=== PATIENT | female | born 1955 | race Caucasian/White ===

== ENCOUNTER 2023-09-13 05:36 | Observation (INO) ==
[2023-09-13] MEDS: Buffered Lidocaine 1% SYRIN 1 ml INTRADERM ONE (06:01)
[2023-09-13] MEDS ORDERED: Famotidine IV 10 MG/ML 2 ml VIAL (20 mg) ONE (06:11)
[2023-09-13] MEDS ORDERED: ceFAZolin 2 GM PREMIX 2 GM/50 ML BAG ONE (06:11)
[2023-09-13] MEDS ORDERED: Chlorhexidine MOUTHWASH 0.12% 15 ML UDC ONE (06:15)
[2023-09-13 06:27] LABS: Rapid COVID-19 Molecular Undetected (Undetected)
[2023-09-13] MEDS: Famotidine IV 10 MG/ML 2 ml VIAL (20 mg) IV ONE (06:33)
[2023-09-13] MEDS: Lactated Ringers 1000 ml BAG 1,000 ML IV SCH ×2 (06:33→12:07)
[2023-09-13] MEDS ORDERED: Lidocaine 1% w EPI 1:200,000 SDV 30 ML VIAL ONE (07:04)
[2023-09-13] MEDS ORDERED: Thrombin 5,000 UNITS 1 APPLIC KIT - topical use - TOPICAL ONE (07:04)
[2023-09-13] MEDS ORDERED: cefTRIAXone VIAL 1,000 MG VIAL ONE (07:04)
[2023-09-13] MEDS ORDERED: Gelfoam Sponge SIZE 100 SPONGE ONE (07:05)
[2023-09-13] MEDS ORDERED: Rocuronium 50 mg VIAL 10 mg/ml 5 ml VIAL (50 mg) ONE (07:06)
[2023-09-13] MEDS ORDERED: Dexamethasone IV 4 MG/ML VIAL 1 ml VIAL ONE (07:06)
[2023-09-13] MEDS ORDERED: Lidocaine 2% PF 5 ML VIAL ONE (07:06)
[2023-09-13] MEDS ORDERED: Ondansetron 4 mg VIAL 2 MG/ML 2 ml VIAL ONE (07:06)
[2023-09-13] MEDS ORDERED: Propofol 10 MG/ML 20 ML BTL ONE (07:06)
[2023-09-13] MEDS ORDERED: fentaNYL 250 mcg/5 ml 50 MCG/ML 5 ml VIAL (250 MCG) ONE (07:07)
[2023-09-13] MEDS ORDERED: Midazolam 2 mg/2 ml VIAL 1 mg/ml 2 ml VIAL (2 mg) ONE (07:07)
[2023-09-13] MEDS ORDERED: ceFAZolin VIAL VIAL ONE (07:08)
[2023-09-13] MEDS ORDERED: Naloxone 0.4 mg VIAL 0.4 mg/ml 1 ml VIAL IV PRN (08:03)
[2023-09-13] MEDS ORDERED: HYDROmorphone 1 MG/1 ML SYRINGE IV PRN (08:03)
[2023-09-13] MEDS ORDERED: fentaNYL 100 mcg/2 ml 50 MCG/ML VIAL IV PRN (08:03)
[2023-09-13] MEDS ORDERED: Calcium Carb (TUMS) 500 mg CHEW TAB PO PRN (09:23)
[2023-09-13] MEDS ORDERED: Benzocaine/Menthol LOZ MT PRN (09:23)
[2023-09-13] MEDS ORDERED: Dextran 70/Hypromellose Tears Eye Drops 15 ml BTL (for Artificials Tears) BOTH EYES PRN (09:23)
[2023-09-13] MEDS ORDERED: Phenol 1.4% Throat Spray BTL MT PRN (09:23)
[2023-09-13] MEDS ORDERED: Senna TAB 8.6 mg TAB PO PRN (09:23)
[2023-09-13] MEDS ORDERED: Ondansetron 4 mg VIAL 2 MG/ML 2 ml VIAL IV PRN (09:23)
[2023-09-13] MEDS: Magnesium Hydroxide LIQ 30 ML UDC PO PRN (18:36)
[2023-09-14] MEDS: Polyethylene Glycol 3350 17 GM PACKET PO SCH (09:28)
[2023-09-14 10:25] VITALS: BP 131/70
== END 2023-09-14 11:20 | disposition home or self-care (01) ==
LOC: SSU 05:36 → OR 05:36
PROVIDERS: ADMIT Neurological Surgery; ATTEND Neurological Surgery